=== PATIENT | female | born 1955 | race Asian ===

== ENCOUNTER 2023-03-11 11:36 | Emergency (ER) | payer MEDICARE ==
[~2023-03-11] VITALS: Ht 157.5 cm; Wt 68.0 kg
[2023-03-11 11:38] VITALS: BP 194/85; PULSE 92; RESP 16; TEMP 97.5; O2SAT 98
[2023-03-11] MEDS ORDERED: KETOROLAC 60MG/2ML VIAL IM ONE (12:00)
[2023-03-11] MEDS ORDERED: MELO-105 MT (14:31)
== END 2023-03-11 14:40 | disposition home or self-care (01) ==
LOC: ER 11:36
DX: M16.11 Unilateral primary osteoarthritis, right hip (principal)
CPT/HCPCS: 99283; 73502; 96372; J1885